=== PATIENT | male | born 1975 | race African-American/Black ===

== ENCOUNTER 2020-03-02 09:31 | Emergency (ER) | payer MEDICAID, OTHER ==
[~2020-03-02] VITALS: Ht 175.3 cm; Wt 116.1 kg
--- NOTE | 2020-03-02 09:44 | NUR ---
ED Nurse Note: Pt walked into ED w/ c/o L head pain. Soft spot on L side fo head since thursday. Pain is 9/10. Pt is alert and ox4, ambulatory. Pt BP currently is 132/112. He takes lisinopril at home for BP. Set up on monitor.
[2020-03-02 09:51] VITALS: BP 132/112
--- NOTE | 2020-03-02 10:14 | NUR ---
ED Nurse Note: ERMD notified BP is 170/114.
[2020-03-02] MEDS ORDERED: Lisinopril 10mg tab ORAL ONE (10:15)
--- NOTE | 2020-03-02 10:49 | Emergency Room Report ---
History of Present Illness General Chief Complaint: General Complaint Source: Patient Present Illness HPI 44-year-old male presents complaining of headache and swelling to scalp for the last 2 days. Denies hitting his head but does not know why he has pain and swelling to his scalp. Throbbing, 9 out of 10, nonradiating. Denies nausea or vomiting. Denies photophobia or blurry vision. Denies neck pain. States that BP high in triage. States that he has not taken his BP meds in about 10 days. Normally takes lisinopril. Denies chest pain or shortness of breath. No other aggravating relieving factors. Denies any other associated symptoms Allergies: Coded Allergies: No Known Allergies (Unverified , 03/02/20) COVID-19 Screening Contact w/high risk pt: No Recent Travel to affected area: No Experienced COVID-19 symptoms?: No COVID-19 Testing performed [employer]: No Patient History Past Medical History: HTN Past Surgical History: none Pertinent Family History: none Social History: Denies: smoking, alcohol use, drug use Immunizations: UTD Reviewed Nursing Documentation: PMH: Agreed; PSxH: Agreed Nursing Documentation-PMH Past Medical History: No History, Except For Hx Hypertension: Yes Review of Systems All Other Systems: negative except mentioned in HPI Physical Exam Vital Signs Date Time Temp Pulse Resp B/P (MAP) Pulse Ox O2 Delivery O2 Flow Rate FiO2 03/02/20 09:32 98.1 83 17 180/124 (142) 98 Room Air 03/02/20 09:51 98 Sp02 EP Interpretation: reviewed, normal General Appearance: no apparent distress, alert, GCS 15, non-toxic Head: normocephalic, other - Swelling to the left temporoparietal scalp. No fluctuance. Eyes: bilateral eye normal inspection, bilateral eye PERRL ENT: hearing grossly normal, normal pharynx, no angioedema, normal voice Neck: full range of motion, supple, no meningismus, supple/symm/no masses Respiratory: chest non-tender, lungs clear, normal breath sounds, speaking full sentences Cardiovascular #1: regular rate, rhythm, no edema Cardiovascular #2: 2+ carotid (R), 2+ carotid (L), 2+ radial (R), 2+ radial (L) , 2+ dorsalis pedis (R), 2+ dorsalis pedis (L) Gastrointestinal: normal bowel sounds, non tender, soft, non-distended, no guarding, no rebound Rectal: deferred Genitourinary: normal inspection, no CVA tenderness Musculoskeletal: back normal, normal range of motion, gait/station normal, non- tender Neurologic: alert, motor strength/tone normal, oriented x3, sensory intact, responsive, speech normal Psychiatric: judgement/insight normal, memory normal, mood/affect normal, no suicidal/homicidal ideation Reflexes: 3+ bicep (R), 3+ bicep (L), 3+ tricep (R), 3+ tricep (L), 3+ knee (R) , 3+ knee (L) Skin: no rash Lymphatic: no adenopathy Medical Decision Making Diagnostic Impression: Primary Impression: Scalp cyst ER Course Hospital Course 44-year-old male presents with pain to scalp Differential diagnoses include: skull fx, intracranial injury, concussion Clinical course Patient placed on stretcher. After initial history and physical I ordered CT head CT head shows no acute process. Appears to be soft tissue mass in the scalp consistent with a cyst. Patient has had prior cysts on his scalp removed. BP High. Given lisinopril and BP improved. Discussed findings with patient. Will provide a refill of his medication. Safe for discharge and close outpatient follow-up Diagnosis - scalp cyst Stable and discharged to home with Rx Lisinopril, Keflex. Followup with PMD. Return to ED if symptoms recur or worsen CT/MRI/US Diagnostic Results CT/MRI/US Diagnostic Results : Imaging Test Ordered: CT Head Impression Procedure: CT Head no Contrast Indication: Headache Technique: Continuous helical CT scanning of the head was performed utilizing automated exposure control without intravenous contrast material. Axial and coronal reconstructions were obtained. Comparison: None CT dose: Total DLP 1072.2 mGycm; CTDI vol 53.4 mGy Findings: There is no acute intracranial hemorrhage, mass effect or cortical edema. There is no shift of the midline structures. Mckeon-white differentiation appears preserved. The ventricles, cisterns and sulci are within normal limits for age. Mastoid air cells and visualized paranasal sinuses are clear. There is no acute skull fracture. There is a rounded mass in the left posterior parietal/occipital scalp which measures approximately 1.6 cm diameter. A similar-appearing lesion is noted within the scalp of the high left parietal region measuring 1.3 cm diameter. There is overlying skin thickening. IMPRESSION: No evidence of acute intracranial hemorrhage, mass effect or cortical edema. MRI may be obtained for more sensitive evaluation as clinically indicated. 2 rounded masses in the soft tissues of the left scalp which may represent a epidermal inclusion/sebaceous or tricholemmal cysts. Correlation with physical exam findings and follow-up recommended. The CT scanner at [facility] is accredited by the [employer] and the scans are performed using protocols designed to limit radiation exposure to as low as reasonably achievable to attain images of sufficient resolution adequate for diagnostic evaluation. Last Vital Signs Date Time Temp Pulse Resp B/P (MAP) Pulse Ox O2 Delivery O2 Flow Rate FiO2 03/02/20 10:12 170/114 03/02/20 09:51 82 16 Room Air 98 03/02/20 09:51 98.1 98 Status: improved Disposition: HOME, SELF-CARE Condition: Stable Scripts Lisinopril* (LISINOPRIL*) 10 Mg Tablet 20 MG ORAL DAILY for 30 Days, TAB Prov: Norm Galeano MD 03/02/20 Cephalexin* (KEFLEX*) 500 Mg Capsule 500 MG ORAL EVERY 6 HOURS for 7 Days, CAP Prov: Norm Galeano MD 03/02/20 Ibuprofen* (MOTRIN*) 600 Mg Tablet 600 MG ORAL Q8H PRN for FOR PAIN, #30 TAB 0 Refills Prov: Norm Galeano MD 03/02/20 Referrals: NON PHYSICIAN (PCP) Norm Galeano MD Mar 02, 2020 10:49
--- NOTE | 2020-03-02 10:59 | Diagnostic Imaging Report ---
Indication: Headache Technique: Continuous helical CT scanning of the head was performed utilizing automated exposure control without intravenous contrast material. Axial and coronal reconstructions were obtained. Comparison: None CT dose: Total DLP 1072.2 mGycm; CTDI vol 53.4 mGy Findings: There is no acute intracranial hemorrhage, mass effect or cortical edema. There is no shift of the midline structures. Mckeon-white differentiation appears preserved. The ventricles, cisterns and sulci are within normal limits for age. Mastoid air cells and visualized paranasal sinuses are clear. There is no acute skull fracture. There is a rounded mass in the left posterior parietal/occipital scalp which measures approximately 1.6 cm diameter. A similar-appearing lesion is noted within the scalp of the high left parietal region measuring 1.3 cm diameter. There is overlying skin thickening. IMPRESSION: No evidence of acute intracranial hemorrhage, mass effect or cortical edema. MRI may be obtained for more sensitive evaluation as clinically indicated. 2 rounded masses in the soft tissues of the left scalp which may represent a epidermal inclusion/sebaceous or tricholemmal cysts. Correlation with physical exam findings and follow-up recommended. The CT scanner at [facility] is accredited by the [employer] and the scans are performed using protocols designed to limit radiation exposure to as low as reasonably achievable to attain images of sufficient resolution adequate for diagnostic evaluation. Normal
[2020-03-02] MEDS ORDERED: IBUPROFEN600 M1 ORAL (11:18)
[2020-03-02] MEDS ORDERED: LISINOPRIL10 MG ORAL (11:18)
[2020-03-02] MEDS ORDERED: CEPHALEXIN500 MG ORAL (11:18)
[2020-03-02 11:27] VITALS: BP 154/101
--- NOTE | 2020-03-02 11:27 | NUR ---
ER DISCHARGE NOTE: Patient is cleared to be discharged per ERMD, pt is aox4, on room air, with stable vital signs. pt was given dc and prescription instructions, pt was able to verbalize understanding, pt id band removed. pt is able to ambulate with steady gait. pt took all belongings.
== END 2020-03-02 11:30 | disposition home or self-care (01) ==
LOC: EMR 10:07
DX: L72.9 Follicular cyst of the skin and subcutaneous tissue, unspecified (principal); I10 Essential (primary) hypertension
CPT/HCPCS: 70450; 99284